=== PATIENT | male | born 1940 | race Caucasian/White ===

== ENCOUNTER 2017-02-09 13:10 | Emergency (ER) | payer MEDICARE ==
[2017-02-09 13:27] VITALS: TEMP 98.1
[2017-02-09 14:32] LABS: BASOPHILS % (AUTO) 0 % (0-3); EOSINOPHILS % (AUTO) 0 % (0-9); HEMATOCRIT 18 % (39-53); MEAN CORPUSCULAR HGB CONC 33.6 gm/dl (32.0-36.0); MEAN CORPUSCULAR VOLUME 88 fL (80-100); MONOCYTES % (AUTO) 10.5 % (0-12); NEUTROPHILS % (AUTO) 72.3 % (37-80)
[2017-02-09] MEDS ORDERED: PANTOPRAZOLE SODIUM 40 MG/10 ML PDS IV ONE (14:42)
[2017-02-09 14:46] LABS: POTASSIUM 4.8 mMol/L (3.5-5.1)
[2017-02-09 14:47] LABS: CALCIUM 7.7 mg/dl (8.5-10.1)
[2017-02-09] MEDS ORDERED: SODIUM CHLORIDE 0.9% 1000 ML SOL IV SCH (15:00)
[2017-02-09 15:02] LABS: ALBUMIN 2.1 gm/dl (3.4-5.0); BILIRUBIN,DIRECT 0.2 mg/dl (0.0-0.2)
[2017-02-09] MEDS ORDERED: ESOMEPRAZOLE SODIUM 40 MG VIAL IV ONE (15:29)
[2017-02-09] MEDS ORDERED: ESOMEPRAZOLE SODIUM 40 MG VIAL IV SCH (15:45)
[2017-02-09 16:12] LABS: ABO A; RH TYPE Positive
[2017-02-09 17:04] VITALS: RESP 20
[2017-02-09 17:08] VITALS: BP 133/56; PULSE 78; O2SAT 100
== END 2017-02-09 16:18 | disposition short-term general hospital (02) | DRG 378 ==
LOC: ED 13:10
DX: K92.2 Gastrointestinal hemorrhage, unspecified (principal); N17.9 Acute kidney failure, unspecified; D64.9 Anemia, unspecified
CPT/HCPCS: 36415; 80048; 80076; 85025; 85610; 85730; 86850; 86900; 86901; 96365; 96374; 99284; 99285